=== PATIENT | male | born 2000 | race Caucasian/White ===

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

== ENCOUNTER 2020-04-19 19:30 | Inpatient (IN) | payer MEDICAID, SELFPAY ==
[~2020-04-19] VITALS: Ht 175.3 cm; Wt 71.7 kg
[2020-04-19 19:35] VITALS: BP 120/66
--- NOTE | 2020-04-19 19:35 | NUR ---
19 YR OLD MALE BIBA FOR CC OF OVERDOSE. PT IS ABLE TO FOLLOW COMMANDS BUT IS NON-VERBAL. PT HAS NO SIGNS OF DISTRESS AND NO SIGNS OF TRAUMA. PT HAS VOMITTED WITH NO REDNESS OR DISCOLORATION. EMESIS BAG IS PROVIDED FOR THE PT. PT HAS VISIBLE EQUAL RISE AND FALL UPON RESPIRATION. LUNGS SOUNDS CLEAR BILATERALLY. HEART SOUNDS WNL. BED LOCKED IN LOWEST POSITION WITH 2 SIDE RAILS UP. WILL CONTINUE TO MONITOR. HISTORY- NONE ALLERGIES- NONE Addendum: 04/20/20 at 0042 by MEDOE 19 YR OLD MALE BIBA FOR CC OF OVERDOSE. PT IS ABLE TO FOLLOW COMMANDS BUT IS NON-VERBAL. PT IS AOX0. PT PUPILS ARE SLUGGISH BUT IS ABLE TO TRACK. PT HAS NO SIGNS OF DISTRESS AND NO SIGNS OF TRAUMA. PT HAS VOMITTED WITH NO REDNESS OR DISCOLORATION. EMESIS BAG IS PROVIDED FOR THE PT. PT HAS VISIBLE EQUAL RISE AND FALL UPON RESPIRATION. LUNG SOUNDS COARSE BILATERALLY. HEART SOUNDS WNL. BED LOCKED IN LOWEST POSITION WITH 2 SIDE RAILS UP. WILL CONTINUE TO MONITOR. HISTORY- NONE ALLERGIES- NONE
--- NOTE | 2020-04-19 19:40 | NUR ---
ERMD AT BEDSIDE FOR MEDICAL EVALUATION.
[2020-04-19] MEDS ORDERED: NACL 0.9% 500 ML IV ONE (19:50)
[2020-04-19] MEDS ORDERED: ONDANSETRON 4 MG/2 ML VIAL IVP ONE ×2 (19:50→21:50)
--- NOTE | 2020-04-19 19:56 | NUR ---
SENIOR ANALYST PROGRAMMER AT BEDSIDE.
[2020-04-19 20:27] LABS: BASOPHILS # (AUTO) 0.1 K/uL (0.00-0.22); BASOPHILS % (AUTO) 0.4 % (0.0-2.0); EOSINOPHILS # (AUTO) 0.5 K/uL (0-0.4); EOSINOPHILS % (AUTO) 3.4 % (0.0-4.0); HEMATOCRIT 46.1 % (36-52); HEMOGLOBIN 14.6 g/dL (12.0-18.0); LYMPHOCYTES # (AUTO) 3.2 K/uL (2.0-11.5); LYMPHOCYTES % (AUTO) 22.7 % (20.5-51.1); MEAN CORPUSCULAR HEMOGLOBIN 27 pg (27-31); MEAN CORPUSCULAR HGB CONC 32 g/dL (33-37); MEAN CORPUSCULAR VOLUME 84.4 fL (80-94); MONOCYTES # (AUTO) 0.6 K/uL (0.8-1.0); MONOCYTES % (AUTO) 4.2 % (1.7-9.3); NEUTROPHILS # (AUTO) 9.7 K/uL (1.8-7.7); NEUTROPHILS % (AUTO) 69.3 % (42.2-75.2); PLATELET COUNT (AUTO) 208 K/uL (140-450); RED BLOOD CELL COUNT(AUTO) 5.46 MIL/uL (4.20-6.10); RED CELL DISTRIBUTION WIDTH 14.3 % (11.6-13.7); WHITE BLOOD COUNT (AUTO) 13.9 K/uL (4.8-10.8)
[2020-04-19 20:47] LABS: ACETAMINOPHEN < 0.5 ug/ml (10-30); ASPARTATE AMINOTRANSFERASE 58 U/L (15-37); CARBON DIOXIDE 28.6 mmol/L (21-32); CHLORIDE 100 mmol/L (98-107); CREATININE 1.6 mg/dL (0.6-1.3); GFR ARICAN-AMERICAN 71 mL/min (>90); GLUCOSE 330 mg/dL (74-106); POTASSIUM 4.6 mmol/L (3.5-5.1); SALICYLATE < 2.8 mg/dL (2.8-20.0); SODIUM SERUM 138 mmol/L (136-145); TOTAL BILIRUBIN 0.3 mg/dL (0.0-1.0); UREA NITROGEN, BLOOD 16 mg/dL (7-18)
--- NOTE | 2020-04-19 20:50 | NUR ---
Pt taken to CT via nguyễn
--- NOTE | 2020-04-19 21:10 | NUR ---
PT HAD X 1 EPISODE OF VOMITTING. PT PROVIDED NEW EMESIS BAG. PT ASKED WHAT HE TOOK . PT DENIES ANY DRUG USE. PT STATES HE DOES NOT REMEMBER WHAT HAPPENED AND DID NOT KNOW WHERE HE WAS. PT REORIENTED TO TIME AND PLACE.
--- NOTE | 2020-04-19 21:15 | NUR ---
PT BROTHER "JEREMY PAL" CALLED AND WAS UPDATED ON PT STATUS. BEST CONTACT IS [phone]
--- NOTE | 2020-04-19 21:20 | NUR ---
PT FOUND AWAKE IN SEMI-NAVARRO'S POSITION. PT IS AXO4. PT STATES NO PAIN AND NO DISTRESS. PT IS ABLE TO SPEAK IN FULL AND COMPLETE SENTENCES WITH NO DIFFICULTIES AND IS ABLE TO FOLLOW COMMANDS. BED LOCKED IN LOWEST POSITION WITH 2 SIDE RAILS UP FOR SAFETY.
--- NOTE | 2020-04-19 21:20 | NUR ---
RT AT BEDSIDE.
--- NOTE | 2020-04-19 21:45 | NUR ---
# 15 FR Rebolledo catheter utilizing sterile technique. Immediate return of 500 ml CLEAR YELLOW urine noted. Urine sample collected and sent to lab. Pt tolerated procedure WELL.
[2020-04-19] MEDS ORDERED: PIPERACILLIN/TAZOBACTAM 3.375 GM in DEXTROSE 5% 50 ML IV ONE (21:50)
[2020-04-19] MEDS ORDERED: CLINDAMYCIN 900 MG in DEXTROSE 5% 100 ML IV ONE (21:50)
--- NOTE | 2020-04-19 22:00 | NUR ---
Lynn Ana swab collected and walked to lab.
[2020-04-19] MEDS ORDERED: PIPERACILLIN/TAZOBACTAM 3.375 GM VIAL IV ONE (22:01)
--- NOTE | 2020-04-19 22:20 | NUR ---
PT FOUND AWAKE IN SEMI-NAVARRO'S POSITION IN BED. PT STATES NO PAIN AND NO DISTRESS. PT HAS VISIBLE EQUAL RISE AND FALL UPON RESPIRATION. BED LOCKED IN LOWEST POSITION WITH 2 SIDE RAILS UP FOR SAFETY.
[2020-04-19 22:24] LABS: BARBITURATE, URINE NEGATIVE ng/ml (NEG <=200); BENZODIAZEPINE, URINE NEGATIVE ng/mL (NEG <=200)
[2020-04-19 22:25] LABS: CANNABINOID, URINE POSITIVE ng/mL (NEG <=50); COCAINE, URINE NEGATIVE ng/mL (NEG <=300); OPIATE, URINE NEGATIVE ng/mL (NEG <=2000); PHENCYCLIDINE SCREEN,URINE NEGATIVE ng/mL (NEG <=25)
[2020-04-19] MEDS ORDERED: ACETAMINOPHEN 325 MG TAB PO PRN (22:35)
[2020-04-19] MEDS ORDERED: CLINDAMYCIN 900 MG/6 ML VIAL IV ONE (22:35)
[2020-04-19] MEDS ORDERED: HYDROcodone/APAP 7.5/325 MG 1 TAB PO PRN (22:35)
[2020-04-19] MEDS ORDERED: DOCUSATE SODIUM 100 MG GELCAP PO PRN (22:35)
[2020-04-19] MEDS ORDERED: POTASSIUM CHLORIDE 10 MEQ TABER PO PRN (22:35)
[2020-04-19] MEDS ORDERED: ONDANSETRON 4 MG/2 ML VIAL IM/IVP PRN (22:35)
[2020-04-19] MEDS ORDERED: ZOLPIDEM 5 MG TAB PO PRN (22:35)
[2020-04-19] MEDS ORDERED: guaiFENesin DM 200/20 MG-10 ML 10 ML UDC PO PRN (22:35)
[2020-04-19 23:11] LABS: PROTHROMBIN TIME 9.8 secs (10.8-13.4)
[2020-04-19 23:19] LABS: CHOL/HDL RATIO 2.9 (1-4.5); FREE T4 (FREE THYROXINE) 0.71 ng/dL (0.76-1.46); MAGNESIUM 2.1 mg/dL (1.8-2.4); THYROID STIMULATING HORMONE 3.26 uIU/mL (0.34-3.74)
--- NOTE | 2020-04-19 23:20 | NUR ---
PT FOUND AWAKE IN SEMI-NAVARRO'S POSITION IN BED. PT STATES NO PAIN AND NO DISTRESS. PT WAS PROVIDED AN EMESIS BAG. PT HAS VISIBLE EQUAL RISE AND FALL UPON RESPIRATION. BED LOCKED IN LOWEST POSITION WITH 2 SIDE RAILS UP FOR SAFETY.
[2020-04-19 23:21] LABS: PHOSPHORUS 9.1 mg/dL (2.5-4.9)
--- NOTE | 2020-04-19 23:29 | NUR ---
Dr. Oliva made aware of critical lab value - troponin 0.[address] Oliva start patient on heparin drip , and put in consult order for Dr. Prakash.
[2020-04-19] MEDS ORDERED: ONDANSETRON 4 MG/2 ML VIAL IVP PRN (23:30)
[2020-04-19] MEDS ORDERED: NACL 0.9% 2,000 ML IV ONE (23:30)
[2020-04-19] MEDS ORDERED: hePARIN / DEXT 5% PREMIX 250 ML IV SCH (23:30)
[2020-04-19] MEDS ORDERED: HEPARIN PER PHARMACY MC PRN (23:30)
[2020-04-19] MEDS ORDERED: CALCIUM ACETATE 667 MG TAB PO SCH (23:30)
--- NOTE | 2020-04-19 23:30 | NUR ---
Per Dr. Oliva upgrade pt to ICU care and page nephrology for pt's elevated phosphorus.
[2020-04-19] MEDS: DEXT 5% /NACL 0.9% 1,000 ML IV SCH (23:45)
--- NOTE | 2020-04-19 23:45 | NUR ---
PT WAS STARTED ON 2 LITERS NORMAL SALINE BOLUS PER DR DURÁN ORDERS.
[2020-04-19 23:46] LABS: APPEARANCE,URINE CLEAR (CLEAR); BILIRUBIN,URINE NEGATIVE (NEGATIVE); BLOOD, URINE NEGATIVE (NEGATIVE); COLOR,URINE YELLOW (YELLOW); LEUKOCYTE ESTERASE ,URINE NEGATIVE (NEGATIVE); NITRITE, URINE NEGATIVE (NEGATIVE); UGLUCOSE 3+ (NEGATIVE)
[2020-04-20] VITALS (23 sets, daily range): BP systolic 105–149; BP diastolic 49–84
--- NOTE | 2020-04-20 00:19 | NUR ---
PT TRANSFERRED TO ROOM [facility]A [facility]IA [facility]. RECEIVING NURSE PASCUAL CHAO AT BEDSIDE.
--- NOTE | 2020-04-20 00:19 | NUR ---
Patient will be admitted to care of DR DURÁN. Admited to ICU. Will go to room 131A. Belongings list completed. Report to PASCUAL CHAO.
--- NOTE | 2020-04-20 00:30 | NUR ---
RECIEVED PT FROM ER NURSE, PT A&0X4, LYING SUPINE IN BED, PT ABLE TO AMBULE, SR ON MONITOR, BP 114/74 HR 77 TEMP 98.1 VIA AXILLARY RR 17 02 SATURATION 94%, PT ON NC 5 L/MIN, ABD SOFT AND NON TENDER TO TOUCH, SKIN WARM AND DRY, SKIN INTACT, PT INCONTINENT, FLACC 0, PERIPHERAL IV RAC 18 GAUGE INFUSING D5 NS, LAC 18 GAUGE SALINE LOCK, PT SHOWING NO ACUTE DISTRESS, SAFETY MEASURES IN PLACE, WILL CONTINUE WITH CURRENT POC
--- NOTE | 2020-04-20 02:10 | NUR ---
STARTED HEPARIN DRIP AT 900 UNITS AND BOLUS OF 4400 UNITS HEPARIN
[2020-04-20] MEDS: hePARIN / DEXT 5% PREMIX 250 ML IV SCH (02:15)
[2020-04-20] MEDS ORDERED: PIPERACILLIN/TAZOBACTAM 3.375 GM VIAL IV ONE (03:36)
[2020-04-20] MEDS: PIPERACILLIN/TAZOBACTAM 3.375 GM in DEXTROSE 5% 50 ML IV SCH ×3 (04:07→20:10)
[2020-04-20 05:51] LABS: BASOPHILS % (AUTO) 0.1 % (0.0-2.0); EOSINOPHILS % (AUTO) 0.1 % (0.0-4.0); HEMATOCRIT 43.6 % (36-52); HEMOGLOBIN 14.2 g/dL (12.0-18.0); LYMPHOCYTES # (AUTO) 0.8 K/uL (2.0-11.5); MEAN CORPUSCULAR HEMOGLOBIN 27 pg (27-31); MEAN CORPUSCULAR HGB CONC 33 g/dL (33-37); MEAN CORPUSCULAR VOLUME 83.4 fL (80-94); MONOCYTES # (AUTO) 0.9 K/uL (0.8-1.0); MONOCYTES % (AUTO) 6.3 % (1.7-9.3); NEUTROPHILS # (AUTO) 11.8 K/uL (1.8-7.7); NEUTROPHILS % (AUTO) 87.5 % (42.2-75.2); PLATELET COUNT (AUTO) 188 K/uL (140-450); RED BLOOD CELL COUNT(AUTO) 5.23 MIL/uL (4.20-6.10); RED CELL DISTRIBUTION WIDTH 13.8 % (11.6-13.7); WHITE BLOOD COUNT (AUTO) 13.5 K/uL (4.8-10.8)
[2020-04-20 06:04] LABS: ANION GAP 11.8 (8-16); CARBON DIOXIDE 26.6 mmol/L (21-32); POTASSIUM 4.4 mmol/L (3.5-5.1)
--- NOTE | 2020-04-20 07:05 | NUR ---
RECEIVED REPORT FROM BLADE SHARPENER NURSE, PASCUAL RN, FOR CONTINUITY OF CARE. PATIENT IS AOX4, ON RA, NO SIGNS OF DISTRESS OR PAIN, RAC AND LAC 18 G, CLEAN DRY AND INTACT, INFUSING HEPARIN AND D5NS. SUPERVISOR CUTTING AND SEWING ROOM, PULSE OXIMETER, AND SAFETY MEASURES IN PLACE. BED IN LOW POSITION, CALL LIGHT WITHIN REACH, WILL CONTINUE TO MONITOR.
--- NOTE | 2020-04-20 07:21 | NUR ---
ENDORSED TO DAY SHIFT RN FOR COTINUITY OF CARE
[2020-04-20] MEDS: DEXT 5% /NACL 0.9% 1,000 ML IV SCH ×2 (08:21→19:43)
[2020-04-20] MEDS: PANTOPRAZOLE 40 MG INJ VIAL IVP SCH (08:23)
--- NOTE | 2020-04-20 08:25 | NUR ---
CHECKED ON PATIENT, ADMINISTERED SCHEDULED AM MEDS, WILL CONTINUE TO MONITOR.
--- NOTE | 2020-04-20 09:15 | NUR ---
PATIENT HAS BEEN SCREENED AND CATEGORIZED LOW NUTRITION RISK. PATIENT WILL BE SEEN WITHIN 7 DAYS OF ADMISSION. 04/26/[address]
--- NOTE | 2020-04-20 10:00 | NUR ---
PTT 36.2, PER HEPARIN PROTOCOL, ADMINISTER 2200 UNIT BOLUS AND INCREASED DRIP BY 2 UNITS/KG. WILL CONTINUE TO MONITOR. Addendum: 04/20/20 at 1024 by Froylan Ahumada RN RN PTT ORDERED FOR 1600.
--- NOTE | 2020-04-20 10:40 | NUR ---
DR. NORY VALLES, UPDATED ON PATIENT STATUS, AWARE OF HEPARIN DRIP AND TROP LEVELS, WILL CONTINUE TO MONITOR.
--- NOTE | 2020-04-20 11:33 | NUR ---
CHECKED ON PATIENT, SLEEPING, NO SIGNS OF DISTRESS OR PAIN, WILL CONTINUE TO MONITOR.
--- NOTE | 2020-04-20 11:53 | NUR ---
SOCIAL WORK NOTE: FIDE WAS UNABLE TO COMPLETE ASSESSMENT WITH PATIENT. PATIENT IS CURRENTLY SLEEPING. FIDE WILL FOLLOW UP TO COMPLETE ASSESSMENT. Addendum: 04/20/20 at 1347 by Dequan Narvaez SS FIDE LEFT VM WITH PATIENT'S FATHER DAKOTAH PAL - [phone].
--- NOTE | 2020-04-20 12:35 | NUR ---
AMBULATED PATIENT TO RESTROOM AND BACK TO BED. WILL CONTINUE TO MONITOR.
--- NOTE | 2020-04-20 13:28 | NUR ---
DR. UGY VALLES, UPDATED ON PATIENT STATUS. WILL CONTINUE TO MONITOR.
--- NOTE | 2020-04-20 13:33 | NUR ---
DISCHARGE PLANNING: THIS IS A 19 YO MALE PATIENT BIBA FROM HOME DUE TO COCAINE OVERDOSE. NO PERTINENT PAST MEDICAL HISTORY. 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 CURRENT LABS INCLUDE WBC 13.5, H/H 14.2/43.6, NA/K 140/4.4, BUN/CREA 11/1.0, PHOS 9.4, TROP 3.798. ON ZOSYN, HEPARIN DRIP - APTT 36.2. ON O2 AT 3 LPM/NC, O2 SAT 98%. HEAD CT NEGATIVE. CXR ON ADMISSION SHOWED PNEUMONIA. RAPID COVID TEST NEGATIVE. CARDIO, NEPHRO AND PULMO CONSULTS IN PLACE. DC PLAN PENDING PATIENT'S RESPONSE TO TREATMENT.
--- NOTE | 2020-04-20 14:20 | NUR ---
CHECKED ON PATIENT, NO SIGNS OF DISTRESS OR PAIN, IN COMFORTABLE POSITION, WILL CONTINUE TO MONITOR.
--- NOTE | 2020-04-20 15:29 | NUR ---
CHECKED ON PATIENT, NO SIGN OF DISTRESS OR PAIN, WILL CONTINUE TO MONITOR.
[2020-04-20] MEDS: ALUMINUM HYDROXIDE 64 MG/ML BOTTLE PO SCH ×2 (15:36→20:10)
--- NOTE | 2020-04-20 15:50 | NUR ---
AMBULATED PATIENT TO RESTROOM AND BACK TO BED, NO SIGNS OF PAIN OR DISTRESS, LOWERED NC TO 2 L, NO SIGN OF SOB, WILL CONTINUE TO MONITOR.
--- NOTE | 2020-04-20 17:15 | NUR ---
CHECKED ON PATIENT, NO SIGNS OF DISTRESS OR PAIN, PATIENT IN COMFORTABLE POSITION, WILL CONTINUE TO MONITOR.
--- NOTE | 2020-04-20 18:25 | NUR ---
CHECKED ON PATIENT, NO SIGNS OF DISTRESS OR PAIN, WILL CONTINUE TO MONITOR. WILL ENDORSE TO LOADING MACHINE TOOL SETTER RN.
--- NOTE | 2020-04-20 19:00 | NUR ---
ENDORSED CARE TO FISHER MUSSEL NURSE, PASCUAL CHAO, FOR CONTINUITY OF CARE.
--- NOTE | 2020-04-20 19:15 | NUR ---
RECIEVED ENDORSEMENT FROM AM SHIFT RN, PT A&0X4, LYING SUPINE IN BED, PT ABLE TO AMBULATE, SR ON MONITOR, PERIPHERAL PULSES PALPABLE, PT ON NC 1 L/MIN, ABD SOFT AND NON TENDER TO TOUCH, SKIN WARM AND DRY, SKIN INTACT, PT INCONTINENT, FLACC 0, PERIPHERAL IV RAC 18 GAUGE INFUSING D5 NS AND HEPARIN, LAC 18 GAUGE SALINE LOCK, PT SHOWING NO ACUTE DISTRESS, SAFETY MEASURES IN PLACE, WILL CONTINUE WITH CURRENT POC
[2020-04-20 22:04] LABS: CREATININE,URINE RANDOM 20 mg/dL (30-125); URINE SODIUM, RANDOM 73 mmol/l (40-220)
[2020-04-21] VITALS (11 sets, daily range): BP systolic 107–163; BP diastolic 41–97
[2020-04-21] MEDS: hePARIN / DEXT 5% PREMIX 250 ML IV SCH (00:06)
[2020-04-21] MEDS: DEXT 5% /NACL 0.9% 1,000 ML IV SCH ×3 (04:21→11:40)
[2020-04-21] MEDS: PIPERACILLIN/TAZOBACTAM 3.375 GM in DEXTROSE 5% 50 ML IV SCH ×3 (04:21→20:54)
[2020-04-21] MEDS: ALUMINUM HYDROXIDE 64 MG/ML BOTTLE PO SCH ×2 (04:21→13:23)
[2020-04-21 05:49] LABS: BASOPHILS % (AUTO) 0.4 % (0.0-2.0); EOSINOPHILS # (AUTO) 0.5 K/uL (0-0.4); EOSINOPHILS % (AUTO) 5.2 % (0.0-4.0); HEMATOCRIT 42.1 % (36-52); HEMOGLOBIN 13.9 g/dL (12.0-18.0); LYMPHOCYTES # (AUTO) 2.3 K/uL (2.0-11.5); LYMPHOCYTES % (AUTO) 24.4 % (20.5-51.1); MEAN CORPUSCULAR HEMOGLOBIN 27 pg (27-31); MEAN CORPUSCULAR HGB CONC 33 g/dL (33-37); MEAN CORPUSCULAR VOLUME 83.3 fL (80-94); MONOCYTES # (AUTO) 0.7 K/uL (0.8-1.0); MONOCYTES % (AUTO) 7.1 % (1.7-9.3); NEUTROPHILS % (AUTO) 62.9 % (42.2-75.2); PLATELET COUNT (AUTO) 173 K/uL (140-450); RED BLOOD CELL COUNT(AUTO) 5.06 MIL/uL (4.20-6.10); RED CELL DISTRIBUTION WIDTH 14.2 % (11.6-13.7); WHITE BLOOD COUNT (AUTO) 9.5 K/uL (4.8-10.8)
[2020-04-21 06:41] LABS: CARBON DIOXIDE 27.6 mmol/L (21-32); CREATININE 0.9 mg/dL (0.6-1.3); MAGNESIUM 1.7 mg/dL (1.8-2.4); PHOSPHORUS 2.9 mg/dL (2.5-4.9); POTASSIUM 3.6 mmol/L (3.5-5.1)
--- NOTE | 2020-04-21 07:25 | NUR ---
RECEIVED PT FROM MICU NURSE, PASCUAL, PT IS AWAKE AND LYING ON THE BED WITH SIDE RAILS UP AND CALL LIGHT WITHIN REACH, IV LINES NOTED ON THE LEFT AC G. 18 ON SALINE LOCK, AND ON THE RT AC G. 18 WITH HEPARIN DRIP INFUSING AT 1050UNITS/HR AND D5NS INFUSING AT 135ML/HR, INTACT, PT IS ON RA AND DENIES PAIN AT THIS TIME, WILL CONTINUE TO [id number] PT.
[2020-04-21 08:08] LABS: T4 (THYROXINE) 5.2 ug/dL (4.5-12.0)
[2020-04-21] MEDS: PANTOPRAZOLE 40 MG INJ VIAL IVP SCH (08:53)
[2020-04-21] MEDS: MAGNESIUM OXIDE 400 MG TAB PO SCH (08:54)
--- NOTE | 2020-04-21 08:54 | NUR ---
PT WAS GIUVEN THE SCHEDULED AM MEDICATIONS NOW, PARAMETER CHECKED,WILL CONTINUE TO MONITOR PT
--- NOTE | 2020-04-21 13:24 | NUR ---
PT WAS GIVEN THE SCHEDULED MEDICATIONS NOW VIA IVPB AND ORAL, WILL CONTINUE TO MONITOR PT.
--- NOTE | 2020-04-21 15:15 | NUR ---
PT IS RESTING AND WATCHING TV, DENIES PAIN AND NO SIGN OF DISTRESS NOTED, WILL CONTINUE TO BE MONITORED
--- NOTE | 2020-04-21 19:25 | NUR ---
RECEIVED BEDSIDE REPORT FROM DAY SHIFT NURSE. PATIENT IS AWAKE AND COOPERATIVE. RESPIRATION EVEN UNLABORED ON ROOM AIR. NO DISTRESS NOTED. SKIN IS WARM AND DRY. IV PATENT AND INTACT. PLAN OF CARE WAS DISCUSSED. ALL SAFETY MEASURES IN PLACE. BED IS AT LOW POSITION. CALL LIGHT WITHIN REACH. WILL CONTINUE TO MONITOR
--- NOTE | 2020-04-21 20:55 | NUR ---
ALL SCHEDULED MEDS WERE GIVEN PER ORDER. WILL CONTINUE TO MONITOR
[2020-04-22] VITALS (7 sets, daily range): BP systolic 130–159; BP diastolic 70–94
--- NOTE | 2020-04-22 01:48 | NUR ---
ENDORSED PATIENT TO KALPANA CHARGE NURSE FOR CONTINUITY OF CARE
--- NOTE | 2020-04-22 01:50 | NUR ---
RECEIVED PT ON BED WITH EYES CLOSED, EASILY AROUSABLE, NO SIGNS OF PAIN OR SOB, IVF INFUSING WELL AT TKO RATE, CALL LIGHT WITHIN REACH, CONTINUE TO MONITOR CLOSELY.
--- NOTE | 2020-04-22 04:00 | NUR ---
PT EASILY AROUSABLE, VITAL SIGNS STABLE, NO SOB OR PAIN NOTED, MONITORED CLOSELY.
[2020-04-22] MEDS: PIPERACILLIN/TAZOBACTAM 3.375 GM in DEXTROSE 5% 50 ML IV SCH ×2 (04:40→13:39)
[2020-04-22 06:05] LABS: BASOPHILS % (AUTO) 0.5 % (0.0-2.0); EOSINOPHILS # (AUTO) 0.6 K/uL (0-0.4); EOSINOPHILS % (AUTO) 7.2 % (0.0-4.0); HEMATOCRIT 42.7 % (36-52); HEMOGLOBIN 14.2 g/dL (12.0-18.0); LYMPHOCYTES # (AUTO) 1.9 K/uL (2.0-11.5); LYMPHOCYTES % (AUTO) 24.2 % (20.5-51.1); MEAN CORPUSCULAR HEMOGLOBIN 27 pg (27-31); MEAN CORPUSCULAR HGB CONC 33 g/dL (33-37); MONOCYTES # (AUTO) 0.7 K/uL (0.8-1.0); MONOCYTES % (AUTO) 8.6 % (1.7-9.3); NEUTROPHILS # (AUTO) 4.8 K/uL (1.8-7.7); NEUTROPHILS % (AUTO) 59.5 % (42.2-75.2); PLATELET COUNT (AUTO) 202 K/uL (140-450); RED BLOOD CELL COUNT(AUTO) 5.21 MIL/uL (4.20-6.10)
[2020-04-22 06:51] LABS: ANION GAP 11.6 (8-16); CARBON DIOXIDE 27.8 mmol/L (21-32); POTASSIUM 3.4 mmol/L (3.5-5.1)
[2020-04-22 06:52] LABS: MAGNESIUM 1.7 mg/dL (1.8-2.4); PHOSPHORUS 4.3 mg/dL (2.5-4.9)
--- NOTE | 2020-04-22 07:20 | NUR ---
RECEIVED BEDSIDE REPORT FROM BLOWING ENGINEER NURSE. PATIENT IS AWAKE AND COOPERATIVE. RESPIRATION EVEN UNLABORED ON ROOM AIR. NO SIGNS OF RESPIRATORY DISTRESS NOTED. SKIN IS WARM AND DRY. IV SITE ON RAC AND LAC 18 G. IV PATENT AND INTACT. PLAN OF CARE WAS DISCUSSED. ALL SAFETY MEASURES IN PLACE. BED IS AT LOW POSITION. CALL LIGHT WITHIN REACH. WILL CONTINUE TO MONITOR
[2020-04-22] MEDS: MAGNESIUM OXIDE 400 MG TAB PO SCH (09:21)
[2020-04-22] MEDS: PANTOPRAZOLE 40 MG INJ VIAL IVP SCH (09:21)
--- NOTE | 2020-04-22 09:30 | NUR ---
ALL SCHEDULED MEDS GIVEN. PT IS STABLE. NO SIGNS OF RESPIRATORY DISTRESS NOTED. WILL CONTINUE TO MONITOR.
--- NOTE | 2020-04-22 11:00 | NUR ---
DISCHARGE ORDER IN PLACE. NOTIFIED PATIENT ABOUT DISCHARGE ORDER. VERBALIZED UNDERSTANDING. CALLED PATIENT'S FATHER TO NOTIFY PATIENT'S DISCHARGE BUT NO ANSWER. WILL TRY AGAIN LATER.
[2020-04-22] MEDS ORDERED: MAG SULF 2000 MG/WATER PREMIX 50 ML IV SCH (13:30)
--- NOTE | 2020-04-22 14:02 | NUR ---
PATIENT'S MAGNESIUM LEVEL WAS 1.7. ADMINISTERED MAG SULFATE PER MD ORDERED.
[2020-04-22] MEDS ORDERED: KCL 20 MEQ/WATER INJ PREMIX 100 ML IV SCH (16:00)
--- NOTE | 2020-04-22 16:00 | NUR ---
PATIENT SIGNED DISCHARGE INSTRUCTIONS AND IS AWARE OF THE INSTRUCTIONS INCLUDED IN THE PACKET. AWAITING FOR FAMILY TO PICK PATIENT UP.
[2020-04-22] MEDS ORDERED: FLU VACCINE QS2020-21 0.5 ML SYR IMVAC PRN (16:10)
--- NOTE | 2020-04-22 16:24 | NUR ---
PATIENT REQUESTED FOR THE FLU VACCINE. ADMINISTERED THE FLU VACCINE PER MD ORDERED.
--- NOTE | 2020-04-22 16:30 | NUR ---
PT DISCHARGED OFF THE UNIT AND PICKED UP FROM THE FRONT OF THE LOBBY BY HIS DAD. PT WAS STABLE PRIOR TO DISCHARGE.
== END 2020-04-22 17:16 | disposition home or self-care (01) | DRG 816 ==
LOC: MED 19:30 → MTU 22:05 → MMU 23:37 → MTU 04-21 07:20
PROVIDERS: ADMIT Family Medicine; ATTEND Family Medicine
DX: T40.5X1A Poisoning by cocaine, accidental (unintentional), initial encounter (principal); A41.9 Sepsis, unspecified organism; J69.0 Pneumonitis due to inhalation of food and vomit; N17.0 Acute kidney failure with tubular necrosis; J96.01 Acute respiratory failure with hypoxia; I21.A1 Myocardial infarction type 2; G92 Toxic encephalopathy; E83.39 Other disorders of phosphorus metabolism; Z20.822 Contact with and (suspected) exposure to COVID-19; E86.0 Dehydration; R73.9 Hyperglycemia, unspecified; M62.82 Rhabdomyolysis; T40.7X1A Poisoning by cannabis (derivatives), accidental (unintentional), initial encounter; Z23 Encounter for immunization; Y92.89 Other specified places as the place of occurrence of the external cause
CPT/HCPCS: 36415; 36600; 70450; 71250; 80048; 80053; 80305; 81003; 82150; 82553; 82570; 82803; 83036; 83690; 83735; 83880; 84100; 84300; 84436; 84439; 84443; 84479; 84484; 85025; 85610; 85730; 87040; 87081; 93005; 96361; 96374; 96376; 99291; C1758; C9113; G0480; G0482; J1644; J2405; J2543; J3475; J3490; J7030; J7042; J7060